=== PATIENT | male | born 1965 | race Caucasian/White ===

== ENCOUNTER 2017-06-22 07:36 | Emergency (ER) | payer OTHER ==
[~2017-06-22] VITALS: Ht 175.3 cm; Wt 90.7 kg
[2017-06-22 08:13] LABS: ABSOLUTE BASOPHIL COUNT 0 /CUMM (0.0-0.2); ABSOLUTE EOSINOPHIL COUNT 0.2 /CUMM (0.0-0.7); ABSOLUTE GRANULOCYTE CT 2.6 /CUMM (1.4-6.5); ABSOLUTE LYMPH COUNT 1.6 /CUMM (1.2-3.4); ABSOLUTE MONOCYTE COUNT 0.3 /CUMM (0.10-0.60); BASOPHIL % 0.5 % (0.0-2.0); EOSINOPHIL % 4.9 % (0-5); GRANULOCYTE % 54.5 % (42.2-75.2); HEMATOCRIT 42.4 % (42-52); MEAN CORPUSCULAR HGB 32.3 PG (27.0-31.0); MEAN CORPUSCULAR HGB CONC 34.1 G/DL (33.0-37.0); MEAN CORPUSCULAR VOLUME 94.6 FL (80.0-94.0); MEAN PLATELET VOLUME 7.6 FL (7.4-10.4); PLATELET COUNT 280 /CUMM (130-400); RBC DISTRIBUTION WIDTH 12.7 % (11.5-14.5); RED BLOOD CELL CT 4.48 /CUMM (4.70-6.10); WHITE BLOOD CELL COUNT 4.7 /CUMM (4.8-10.8)
--- NOTE | 2017-06-22 08:13 | ED AMS/SEIZURE/WEAK/DIZZY ---
History of Present Illness General Chief Complaint: General Adult Stated Complaint: SUDDEN ONSET DIZZINESS; PRESSURE TO BACK OF HEAD Source: patient Exam Limitations: no limitations Vital Signs & Intake/Output Vital Signs & Intake/Output Vital Signs Date Time Temp Pulse Resp B/P B/P Pulse O2 O2 Flow FiO2 Mean Ox Delivery Rate 06/22 1204 62 18 157/92 98 06/22 0920 60 168/95 06/22 0858 98 Room Air 06/22 0745 96.5 72 20 152/98 99 Room Air Allergies Coded Allergies: ibuprofen (Severe, ANAPHYLAXIS 06/22/17) aspirin (Intermediate, HIVES 06/22/17) Reconcile Medications Meclizine HCl 25 MG TABLET 1 TAB PO BIDPRN PRN dizzy Triage Note: PT TO ED WITH C/O " I WAS DRIVING TO WORK, SUDDEN ONSET OF FEELING DIZZY, I MADE IT INTO WORK, BUT IT DIDN'T GO AWAY, MY BOSS DROVE ME HERE". Triage Nurses Notes Reviewed? yes Onset: Abrupt Duration: hour(s): (2), changing over time, continues in ED Timing: single episode today Severity: mild, moderate Severity Numbers: 5 No Modifying Factors: none Associated Symptoms: headache, palpitations HPI: 51-year-old male with no past medical history presents for evaluation of dizziness headache and palpitations. Patient states that he woke up today feeling fine and while he was driving to work he suddenly became dizzy and felt a pressure in the back of his head. He felt like the dizziness was increasing as he was driving he was having difficulty driving straight. Patient was able to make it to work but his symptoms persisted. He reports dizziness that is worse with movement of the head and improves with rest. He reports that he has a pressure-like sensation in the back of his head. He rates the pressure as a 5 out of 10. The pain does not radiate there are no alleviating or aggravating factors. He feels though the symptoms have improved since they first started however they have not gone away completely. He states that he had a similar episode that lasted only about 15 minutes yesterday. Additionally he reports a fluttering sensation in his chest. He states that he has been having this intermittently for many months. No chest pain, shortness of breath, syncope, lower extremity edema, abdominal pain, nausea, vomiting, changes in vision, head trauma, fever, urinary symptoms, or any other associated symptoms. He states he has been eating and drinking normally. He does not take any medications. (FLORENCIA FRANCES PA-C) Past History Travel History Traveled to [place] past 21 day No Medical History Any Pertinent Medical History? see below for history Neurological: NONE EENT: NONE Cardiovascular: NONE Respiratory: NONE Gastrointestinal: NONE Hepatic: NONE Renal: NONE Musculoskeletal: NONE Psychiatric: NONE Endocrine: NONE Blood Disorders: NONE Cancer(s): NONE PRINTER'S DEVIL/Reproductive: NONE Surgical History Surgical History: none Psychosocial History What is your primary language Hebrew Tobacco Use: Current Daily Use Daily Tobacco Use Amount/Type: => 5 Cigarettes daily ETOH Use: occasional use Illicit Drug Use: denies illicit drug use Family History Hx Contributory? No (FLORENCIA FRANCES PA-C) Review of Systems Review of Systems Constitutional: Reports: no symptoms. EENTM: Reports: no symptoms. Respiratory: Reports: no symptoms. Cardiovascular: Reports: palpitations. GI: Reports: no symptoms. Genitourinary: Reports: no symptoms. Musculoskeletal: Reports: no symptoms. Skin: Reports: no symptoms. Neurological/Psychological: Reports: see HPI (dizzy), headache. Hematologic/Endocrine: Reports: no symptoms. Immunologic/Allergic: Reports: no symptoms. All Other Systems: Reviewed and Negative (FLORENCIA FRANCES PA-C) Physical Exam Physical Exam General Appearance: well developed/nourished, no apparent distress, alert, awake , anxious Head: atraumatic, normal appearance Eyes: Bilateral: normal appearance, PERRL, EOMI, other (horizontal nystagmus). Ears, Nose, Throat: normal pharynx, normal ENT inspection, hearing grossly normal Neck: normal inspection, supple, full range of motion, no midline tenderness Respiratory: normal breath sounds, chest non-tender, no respiratory distress, lungs clear Cardiovascular: regular rate/rhythm, normal peripheral pulses Peripheral Pulses: 2+ radial (R), 2+ radial (L), 2+ dorsalis pedis (R), 2+ dorsalis pedis (L) Gastrointestinal: normal bowel sounds, soft, non-tender, no organomegaly Back: normal inspection, normal range of motion Extremities: normal range of motion Neurologic/Psych: no motor/sensory deficits, awake, alert, oriented x 3, normal gait, normal mood/affect, 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 Skin: intact, normal color, warm/dry Lymphatic: no anterior cervical liliana Core Measures ACS in differential dx? No CVA/TIA Diagnosis: No Severe Sepsis Present: No Septic Shock Present: No (YVROSE BENTON,FLORENCIA) Progress Differential Diagnosis: arrythmia, anemia, benign positional vertigo, dehydration, electrolyte imbalance, hypoglycemia, intracranial Hem., intracranial mass/tumor, labrynthitis, postural hypotension, presyncope, post- traumatic vertigo, subarachnoid Hem., vertebrobasilar insuff Plan of Care: Orders Procedure Date/time Status TROPONIN LEVEL 06/22 1130 Complete EKG 06/22 1130 Active Add-on Test (ER Only) 06/22 0808 Active TSH REFLEX 06/22 0804 Complete MAGNESIUM 06/22 0804 Complete URINALYSIS 06/22 0803 Complete TROPONIN LEVEL 06/22 0803 Complete COMPREHENSIVE METABOLIC PANEL 06/22 0803 Complete CBC WITHOUT DIFFERENTIAL 06/22 08 Complete EKG 06/22 0739 Active Current Medications Sig/Irvin Start time Last Medication Dose Stop Time Status Admin Sodium Polystyrene 60 ML ONCE ONE 06/22 1015 CAN Sulfonate 06/22 1016 (Kayexalate) Laboratory Tests 06/22/17 1140: Troponin I < 0.01 06/22/17 0804: Anion Gap 9, Estimated GFR > 60, BUN/Creatinine Ratio 22.5, Glucose 115 H, Calcium 10.0, Magnesium 2.0, Total Bilirubin 1.0, AST 45, ALT 56, Alkaline Phosphatase 56, Troponin I < 0.01, Total Protein 7.5, Albumin 4.7, Globulin 2.8, Albumin/Globulin Ratio 1.7, TSH &T3 &Free T4 Intrp 0.870, CBC w Diff NO MAN DIFF REQ, RBC 4.48 L, MCV 94.6 H, MCH 32.3 H, RDW 12.7, MPV 7.6, Gran % 54.5, Lymphocytes % 33.1, Monocytes % 7.0, Eosinophils % 4.9, Basophils % 0.5, Absolute Granulocytes 2.6, Absolute Lymphocytes 1.6, Absolute Monocytes 0.3, Absolute Eosinophils 0.2, Absolute Basophils 0, PUBS MCHC 34.1, Urine Color YEL, Urine Clarity CLEAR, Urine pH 6.5, Ur Specific Jelm 1.010, Urine Protein NEG, Urine Ketones NEG, Urine Nitrite NEG, Urine Bilirubin NEG, Urine Urobilinogen 0.2, Ur Leukocyte Esterase NEG, Ur Microscopic EXAM NOT REQUIRED, Urine Hemoglobin NEG, Urine Glucose NEG 8 AM: Patient seen and evaluated. His EKG is within normal limits. He is not orthostatic. Patient is neurologically intact. There is some horizontal nystagmus present on exam. Patient will have basic blood work and a CT scan of his head. He'll be given meclizine for treatment of vertigo. We'll follow up on results and reassess the patient. 9:50 AM: Patient reevaluated he is feeling much better after receiving meclizine. He states he is no longer dizzy and no longer has any pressure in his head. CT scan of the brain is within normal limits. EKG is within normal limits. Blood work shows a mildly elevated potassium at 5.4. Troponin is negative. Patient will have a repeat EKG and troponin to rule out acute coronary syndrome. Also given a liter of normal saline to bring his potassium down. Repeat EKG is negative. 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 He'll be given meclizine. Reviewed all results of today's visit with patient. Patient is nontoxic-appearing agrees the plan. Case discussed with Dr. Mccullough she agrees the plan. I discussed with the patient at length all of their results. I had an extensive conversation regarding need for close follow up with their primary care physician this week as well as return precautions. I answered all of their questions, they feel comfortable with the plan and follow-up care. I discussed with the patient/family the medications that they will receive. I gave them signs and symptoms that could indicate an adverse reaction. I have advised them to limit their activities until they can see how they respond to the medication. (YVROSE BENTON,FLORENCIA) Diagnostic Imaging: Viewed by Me: CT Scan. Discussed w/RAD: CT Scan. Initial ED EKG: SINUS RHYUTHM, LATERAL INFARCT OLD Prior EKG: unchanged Repeat EKG: unchanged Comments: PATIENT: SIMONA STEVENS PRESENT AGE: 51 PATIENT ACCOUNT NO: [id number] : 66 LOCATION: [facility] ORDERING PHYSICIAN: FLORENCIA FRANCES PA-C SERVICE DATE: 06/22/17 EXAM TYPE: CAT - CT HEAD WO IV CONTRAST EXAMINATION: CT HEAD WITHOUT CONTRAST CLINICAL INFORMATION: 51-year-old man with headache and dizziness. COMPARISON: None TECHNIQUE: Contiguous axial imaging was performed from the skull base to vertex without intravenous administration of contrast. DLP: 639 mGy-cm FINDINGS: There is no evidence of acute intracranial hemorrhage or territorial infarction. No abnormal mass effect or midline shift is seen. Benítez to white matter differentiation is well preserved. No extra-axial fluid collections are identified. The ventricles are normal in size. There is no abnormal attenuation within the brain parenchyma. The osseous structures and soft tissues are normal. Mild to moderate mucosal thickening is visible in the ethmoid air cells. IMPRESSION: No acute intracranial pathology. DICTATED BY: SUSAN BAILEY MD DATE/TIME DICTATED:06/22/17920 MANAGER CUSTOM:YOSSI DATE/TIME TRANSCRIBED:06/22/17920 (FLORENCIA FRANCES PA-C) Departure Departure Disposition: HOME OR SELF CARE Condition: Stable Clinical Impression Primary Impression: Dizziness Referrals: PATIENT HAS NO PRIMARY CARE DR COURTNEY THOMPSON,W [facility] Additional Instructions: Rest and drink plenty of fluids. Use meclizine every 12 hours needed for dizziness this may cause drowsiness. Make a follow-up appt with a primary care doctor and a gas meter mechanic as soon as possible. Return to the emergency department with any concerns. Departure Forms: Customer Survey General Discharge Information Prescriptions: Current Visit Scripts Meclizine HCl 1 TAB PO BIDPRN PRN dizzy #30 TAB (FLORENCIA FRANCES PA-C) PA/WEB MARKETING ASSISTANT Co-Sign Statement Statement: ED Attending supervision documentation- [] I saw and evaluated the patient. I have also reviewed all the pertinent lab results and diagnostic results. I agree with the findings and the plan of care as documented in the PA's/WEB MARKETING ASSISTANT's documentation. [X] I have reviewed the ED Record and agree with the PA's/WEB MARKETING ASSISTANT's documentation. [] Additions or exceptions (if any) to the PAs/WEB MARKETING ASSISTANT's note and plan are summarized below: [] (BALWINDER THOMPSON,ALBIN)
--- NOTE | 2017-06-22 09:25 | CT SCAN REPORT ---
EXAMINATION: CT HEAD WITHOUT CONTRAST CLINICAL INFORMATION: 51-year-old man with headache and dizziness. COMPARISON: None TECHNIQUE: Contiguous axial imaging was performed from the skull base to vertex without intravenous administration of contrast. DLP: 639 mGy-cm FINDINGS: There is no evidence of acute intracranial hemorrhage or territorial infarction. No abnormal mass effect or midline shift is seen. Benítez to white matter differentiation is well preserved. No extra-axial fluid collections are identified. The ventricles are normal in size. There is no abnormal attenuation within the brain parenchyma. The osseous structures and soft tissues are normal. Mild to moderate mucosal thickening is visible in the ethmoid air cells. IMPRESSION: No acute intracranial pathology.
[2017-06-22 12:04] VITALS: BP 157/92
[2017-06-22] MEDS ORDERED: MECLIZINE HCL25 MG PO (12:14)
== END 2017-06-22 12:40 ==
LOC: ERH 07:36
PROVIDERS: Physician Assistant Medical
DX: R42 Dizziness and giddiness (principal); R51 Headache
CPT/HCPCS: 81003; 93005; 93010; 96360